=== PATIENT | male | born 1975 | race Asian ===

== ENCOUNTER 2017-01-28 05:31 | Inpatient (IN) | payer OTHER ==
[2017-01-28] VITALS (21 sets, daily range): BP systolic 110–138; BP diastolic 41–93
[~2017-01-28] VITALS: Ht 188 cm; Wt 94.3 kg
[~2017-01-28 05:31] MED LIST: IBUPROFEN600 MG ORAL; MULTIVITAMINS1 EAC2 ORAL; NORCO 5-325 TA1 EAC1 ORAL
[2017-01-28] MEDS ORDERED: Vancomycin 1gm inj IVPB ONE (05:53)
[2017-01-28] MEDS ORDERED: Bupivacaine w/Epi 0.5% 30ml Vial INJ ONE (05:53)
[2017-01-28] MEDS ORDERED: Thrombin 5000 units TOPIC ONE (05:53)
[2017-01-28] MEDS ORDERED: Bacitracin 50000 Units Vial ONE (05:54)
[2017-01-28] MEDS ORDERED: Thrombin 5000 units spray kit TOPIC ONE (05:54)
[2017-01-28] MEDS ORDERED: Gelfoam Absorbable 1gm powder pkt TOPIC ONE (05:54)
--- NOTE | 2017-01-28 06:59 | Pre-Procedure Note/Attestation ---
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 I attest that, if there was a reasonable possibility of needing a blood transfusion, the patient (or the patient's legal compliance representative dealer) was given the [facility] standardized written summary, pursuant to the Jas Nilesh Blood Safety Act ([place] Health and Safety Code # 1645, as amended). I attest that I re-evaluated the patient just prior to the surgery and that there has been no change in the patient's H&P, except as documented below: SHERLY SIN Jan 28, 2017 06:59
[2017-01-28] MEDS ORDERED: Heparin 5000 units/ml inj ONE (07:00)
[2017-01-28] MEDS ORDERED: LR 1000ml 1,000 ML IVLG SCH (07:37)
--- NOTE | 2017-01-28 07:37 | Anethesia Preoperative Eval ---
Anesthesia Pre-op PMH/ROS General Date of Evaluation: Jan 28, 2017 Anesthesiologist: Cesar ASA Score: ASA 1 Mallampati Score Class I : Soft palate, uvula, fauces, pillars visible Class II: Soft palate, uvula, fauces visible Class III: Soft palate, base of uvula visible Class IV: Only hard plate visible Mallampati Classification: Class II Surgeon: Ayo Diagnosis: L4-5 Nucleus pulposus Surgical Procedure: L4-5 total total disc arthroplasty Anesthesia History: none Social History: current smoker - 1/2 pack per day X 10+ years Family History: no anesthesia problems Allergies: Coded Allergies: No Known Allergies (Unverified , 01/24/17) Medications: see eMAR - Past Medical History Cardiovascular: Denies: CAD, HTN, [place], arrhythmia, other, valve dz Pulmonary: Denies: COPD, KRISTEN, asthma, other Gastrointestinal/Genitourinary: Denies: CRI, ESRD, GERD, other Neurologic/Psychiatric: Denies: CVA, TIA, dementia, depression/anxiety, other Endocrine: Denies: DM, hypothyroidism, other, steroids HEENT: Denies: [place] (L), [place] (R), cataract (L), cataract (R), glaucoma, other Hematology/Immune: Denies: DVT, anemia, bleeding disorder, other Musculoskeletal/Integumentary: Denies: DDD, DJD, OA, RA, edema, other PSxH Narrative: lap appy Anesthesia Pre-op Phys. Exam Physician Exam Last Vital Signs Date Time Temp Pulse Resp B/P Pulse Ox O2 Delivery O2 Flow Rate FiO2 01/28/17 06:14 97.2 78 18 138/93 97 Room Air Constitutional: NAD Cardiovascular: RRR Respiratory: CTA Airway Exam Mallampati Score: Class II MO: full ROM: full Teeth: missing, intact Anesthesia Pre-op A/P Labs see chart Studies Pre-op Studies: EKG - sr Risk Assessment & Plan Assessment: ASA I Plan: GA Status Change Before Surgery: No Pre-Antibiotics Drug: Ancef 2g Given Within 1 Hr of Incision: Yes JAMES BADILLO M.D. Jan 28, 2017 07:37
[2017-01-28] MEDS ORDERED: Labetalol 5mg/ml 20ml vial IV PRN (07:45)
[2017-01-28] MEDS ORDERED: Metoclopramide 10mg/2ml Inj IVP PRN (07:45)
[2017-01-28] MEDS ORDERED: DiphenhydrAMINE 50mg/ml Inj IVP PRN ×2 (07:45→13:00)
[2017-01-28] MEDS ORDERED: fentaNYL 100 mcg/2 mL IV PRN (07:45)
[2017-01-28] MEDS ORDERED: Zemuron 50mg/5ml Inj IV ONE (08:00)
[2017-01-28] MEDS ORDERED: LR 1000ml ONE (08:00)
[2017-01-28] MEDS ORDERED: Sterile Water Irrig 1000ml IRRIG ONE (08:00)
[2017-01-28] MEDS ORDERED: Midazolam 2mg/2ml Inj ONE (08:00)
[2017-01-28] MEDS ORDERED: Dexamethasone 4mg/ml vial ONE (08:00)
[2017-01-28] MEDS ORDERED: Metoclopramide 10mg/2ml Inj ONE (08:00)
[2017-01-28] MEDS ORDERED: fentaNYL 250mcg/5ml ONE (08:00)
[2017-01-28] MEDS ORDERED: Propofol 10mg/ml 100ml btl IV ONE (08:00)
[2017-01-28] MEDS ORDERED: NS Irrig 1000ml ONE (08:00)
--- NOTE | 2017-01-28 09:05 | Immediate Post-Op Evaluation ---
Immediate Post-Op Evalulation Immediate Post-Op Evalulation Procedure: Total disc arthroplasty L4-5 Date of Evaluation: Jan 28, 2017 Time of Evaluation: 11:01 IV Fluids: 1.2L Blood Products: 0 Estimated Blood Loss: 100 Urinary Output: 450 Blood Pressure Systolic: 110 Blood Pressure Diastolic: 42 Pulse Rate: 90 Respiratory Rate: 16 O2 Sat by Pulse Oximetry: 100 Temperature (Fahrenheit): 97.8 Pain Score (1-10): 0 Nausea: No Vomiting: No Complications 0 Patient Status: awake, reacts, patent, none Hydration Status: adequate Drug: Ancef 2g Given Within 1 Hr of Incision: Yes Time Given: 08:35 JAMES BADILLO M.D. Jan 28, 2017 09:05
--- NOTE | 2017-01-28 11:26 | Operative Note - PDOC ---
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
[2017-01-28] MEDS: Hydromorphone 0.5mg/0.5ml inj IVP PRN ×3 (11:43→12:28)
--- NOTE | 2017-01-28 11:47 | Diagnostic Imaging Report ---
Indication: PAIN Technique: Digital intraoperative images Comparison: None Findings: Intraoperative images demonstrate surgical tool anterior to the L4-5 disc. Subsequent images document placement of a disc prosthesis at L4-5 Impression: Intraoperative imaging, as described
[2017-01-28] MEDS: PCA HYDROmorphone 1mg/ml 30 ML IV PRN (12:54)
[2017-01-28] MEDS ORDERED: LORazepam 1mg tab ORAL PRN (13:00)
[2017-01-28] MEDS ORDERED: Rate Change PCA 1 Each MISC PRN (13:00)
[2017-01-28] MEDS ORDERED: Naloxone 0.4mg/ml Inj IVP PRN (13:00)
[2017-01-28] MEDS: PCA shift volume MISC SCH ×2 (15:27→23:29)
[2017-01-28] MEDS: D5 1/2NS w/KCl 20mEq 1,000 ML IV SCH (16:35)
[2017-01-28] MEDS: ceFAZolin sod 1 GM in D5W 55 ML IV SCH (16:38)
[2017-01-28] MEDS ORDERED: Influenza Virus Vaccine 0.5ml IM ONE (18:00)
--- NOTE | 2017-01-28 22:58 | Operative Note - Dictated ---
DATE OF OPERATION: 01/28/2017 FACILITY: [facility]. SURGEON: Laz Rollins M.D. with co-surgeon, Dr. Alfredito Napier, for vascular approach. TAX ACCOUNTING MANAGER: Lina Rivera ANESTHESIA: General endotracheal with arterial blood pressure monitoring, Dr. Guerrero. PREOPERATIVE DIAGNOSES: Disk herniation, segmental instability, collapse and degeneration at the L4-L5 level. POSTOPERATIVE DIAGNOSES: Disk herniation, segmental instability, collapse and degeneration at the L4-L5 level. OPERATIVE PROCEDURE: Left pararectus retroperitoneal approach for vessel mobilization and retraction by Dr. Napier with anterior diskectomy with an anterior annulotomy, nuclear diskectomy, bilateral neural foraminotomy and microneurolysis, placement of a total disk arthroplasty implant at the 4-5 level using a large 10 x 6 construct with use of image intensification for help in placement and pulse oximetry. The patient was prepped and draped in usual manner supine on the operating table. A left pararectus retroperitoneal approach was accomplished by Dr. Napier. Vessels were mobilized and retracted using a table fixed frame with reverse tip blades. Center of the disk at 4-5 was marked and the disk was checked AP and lateral with image. Anterior annulotomy was done. The nuclear disk and cartilaginous endplate was then sequentially removed from front to back using [place] tree detachable distractors beginning at 8 and going up to 12 millimeters. The PLL posterior disk annulus was released down the herniation on the left side and to the foramen was also removed. The lateral soft tissues and the lateral disk annulus was left in place. The level was templated with a large 10 x 6 TDA. The template was placed within a couple millimeters of the posterior edge of the vertebral bodies. It was centered between the pedicles and directly on the spinous process and AP. There was good tension with good pull out friction. The mily were then cut in inferior and superior and the disk endplates were tapped into place with the mily attached. They were watched on lateral image until they reached the appropriate depth and were well-aligned with the endplates about 2 to 3 millimeters left of the posterior edge to the posterior margin of the vertebral body. There was good distraction and good overall lordosis. A polyethylene component was then inserted with no step and no gap and the glez was removed. The position of the TDA was then checked, both AP and lateral, there was good fixation, good lordosis and good overall sagittal alignment. There was a well centered prosthesis on AP exactly with distant on the vertebral body with the midline on the spinous process and good centering between the pedicles. Blood loss was not significant. The wound was copiously irrigated and closed in layers including anteroposterior sheath, subcutaneous, and skin. The patient was placed in a compression dressing, returned to recovery room in good condition. Laz Rollins M.D. DR: DARIO JOB#: [id number] CC:
[2017-01-29] VITALS: BP 102/66
[2017-01-29] MEDS: ceFAZolin sod 1 GM in D5W 55 ML IV SCH ×2 (00:01→09:19)
[2017-01-29 04:00] VITALS: BP 110/61
[2017-01-29] MEDS: D5 1/2NS w/KCl 20mEq 1,000 ML IV SCH ×3 (04:12→22:14)
[2017-01-29] MEDS: PCA shift volume MISC SCH ×3 (07:00→23:00)
[2017-01-29 08:00] VITALS: BP 107/68
--- NOTE | 2017-01-29 09:15 | General Surgery Progress Note ---
General Surgery-Progress Note Subjective Procedure Performed Total Disc Arthroplasty L3-5 Symptoms: improved Objective Last 24 Hour Vital Signs Date Time Temp Pulse Resp B/P Pulse Ox O2 Delivery O2 Flow Rate FiO2 01/29/17 04:00 18 01/29/17 04:00 98.1 69 19 110/61 96 Room Air 01/29/17 00:00 98.1 68 18 102/66 97 Room Air 01/28/17 20:40 96.8 82 19 117/69 96 Room Air 01/28/17 20:00 18 01/28/17 16:35 16 01/28/17 16:16 98.4 89 18 115/74 95 Nasal Cannula 2.0 01/28/17 15:59 16 01/28/17 14:55 97.7 86 20 123/81 100 Nasal Cannula 2.0 01/28/17 14:31 18 01/28/17 14:20 98.6 83 20 134/82 99 Nasal Cannula 3.0 01/28/17 14:16 20 01/28/17 14:05 84 20 130/80 100 Nasal Cannula 3.0 01/28/17 14:01 20 01/28/17 13:45 85 16 129/84 99 Nasal Cannula 3.0 01/28/17 13:40 20 01/28/17 13:30 82 13 115/73 99 Nasal Cannula 3.0 01/28/17 13:25 20 01/28/17 13:15 84 14 118/72 99 Nasal Cannula 3.0 01/28/17 13:10 20 01/28/17 13:02 86 20 119/75 100 Nasal Cannula 3.0 01/28/17 12:55 20 01/28/17 12:54 97.8 01/28/17 12:54 97.8 01/28/17 12:54 97.8 01/28/17 12:46 81 18 119/81 99 Nasal Cannula 3.0 01/28/17 12:35 82 20 130/86 100 Nasal Cannula 3.0 01/28/17 12:28 85 20 115/84 100 Nasal Cannula 3.0 01/28/17 12:02 82 20 130/86 100 Nasal Cannula 3.0 01/28/17 11:52 85 22 132/83 99 Nasal Cannula 3.0 01/28/17 11:43 84 22 133/83 99 Nasal Cannula 3.0 01/28/17 11:30 86 20 132/82 98 Nasal Cannula 3.0 01/28/17 11:20 87 20 122/48 100 Simple Mask 10.0 01/28/17 11:05 87 20 110/46 100 Simple Mask 10.0 01/28/17 11:01 90 16 100 01/28/17 11:00 86 20 112/41 100 Simple Mask 10.0 01/28/17 10:56 97.0 89 20 110/42 100 Simple Mask 10.0 I&O Intake and Output 01/28/17 01/29/17 19:00 07:00 Intake Total 2355 ml 400 ml Output Total 1500 ml 2250 ml Balance 855 ml -1850 ml Intake IV Total 2355 ml 400 ml Output Urine Total 1400 ml 2250 ml Estimated Blood Loss 100 ml Dressing: dry Wound: clean Drains: none Abdomen: absent bowel sounds Additional Comments First post op day, No lower GI activity yet >> NPO D/C hernandez today. Begin PT / OT oob with brace. Dr. Tariq following SHERLY SIN Jan 29, 2017 09:15
--- NOTE | 2017-01-29 11:45 | 48 Hour Post Anesthesia Eval ---
Post Anesthesia Evaluation Procedure: Total disc arthroplasty L4-5 Date of Evaluation: Jan 29, 2017 Time of Evaluation: 09:20 Blood Pressure Systolic: 107 0: 68 Pulse Rate: 76 Respiratory Rate: 18 Temperature (Fahrenheit): 97.0 O2 Sat by Pulse Oximetry: 100 Airway: patent Nausea: No Vomiting: No Pain Intensity: 3 Hydration Status: adequate Cardiopulmonary Status: Stable Mental Status/LOC: patient returned to baseline Follow-up Care/Observations: As per surgery Post-Anesthesia Complications: No anesthetic complication Follow-up care needed: N/A ANALIA BALDERRAMA M.D. Jan 29, 2017 11:45
[2017-01-29] MEDS: PCA HYDROmorphone 1mg/ml 30 ML IV PRN (11:59)
[2017-01-29 12:00] VITALS: BP 119/64
[2017-01-29 16:29] VITALS: BP 123/82
[2017-01-29 20:27] VITALS: BP 136/85
--- NOTE | 2017-01-29 23:48 | Operative Note - Dictated ---
DATE OF OPERATION: 01/28/2017 VASCULAR SURGEON: Junior Napier M.D. SPINE SURGEON: Laz Rollins M.D. PREOPERATIVE DIAGNOSIS: Degenerative disc disease. POSTOPERATIVE DIAGNOSIS: Degenerative disc disease. PROCEDURE PERFORMED: Anterior retroperitoneal exposure of L4-L5 vertebral interspace. INDICATIONS: The patient is a very pleasant gentleman, who is seen prior to surgery. He has a history of prior appendectomy. No history of deep vein thrombosis or bleeding complications was described. The patient was made aware the need for lower abdominal incision for exposure of L4-L5, possibly vascular injury, possible need for blood transfusion, deep venous thrombosis were explicitly discussed with him prior to surgery. DESCRIPTION OF FINDINGS: A vertical midline incision was used. A left retroperitoneal approach was used. There was no peritoneal or ureteral violation. There was no vascular injury. Exposure of L4-L5 was obtained by retraction of the left iliac vessels towards the patient's right above the iliac bifurcation. Fluoroscopy used to confirm the appropriate level. On completion, the patient had palpable femoral pedal pulses. Blood loss less than 50 mL. Pulse oximetry did diminish with retraction of the iliac vessels during the instrumentation, however, returned immediately upon releasing the retraction and the length of this occlusion was less than 25-30 minutes. DESCRIPTION OF PROCEDURE: The patient was taken to the operating room, general anesthesia was used. IV antibiotics were given. Abdomen was prepped and draped. Appropriate timeout procedures were taken. A lower vertical midline incision was used. Anterior fascia was incised longitudinally in the midline. A plane was identified posterior to the left rectus abdominis and developed posterolaterally towards the patient's left. The retroperitoneal space entered below the arcuate line. The peritoneum and ureter mobilized towards the patient's right exposing the left common iliac vessels. Dissection was carried on the left side of the left common iliac artery and vein. Overlying lymphatics were ligated with vascular clips. The iliolumbar vein was identified. It was circled using a 2-0 silk tie. It was triply ligated proximally and distally with vascular clips and divided. The L4 segmental artery and vein were also identified superior to the L4-L5 vertebral interspace. These were ligated with vascular clips and divided and this allowed us to retract the left iliac vessels towards the patient's right exposing the anterior surface of L4-L5. The Omni retractor was set in place. Fluoroscopy was then used to confirm the appropriate level. Instrumentation was performed at L4-L5 and dictated separately. On completion, retractor gently removed. The peritoneum and ureter intact. Iliac vessels are intact. Anterior fascia closed using #1 PDS in running fashion. Skin and subcutaneous tissue were closed with 3-0 Vicryl and 4-0 Monocryl in running subcuticular closure technique. ESTIMATED BLOOD LOSS: Less than 100 mL. COMPLICATIONS: None. Junior Napier M.D. DR: MAYNOR JOB#: [id number] CC:
[2017-01-30] VITALS: BP 128/81
[2017-01-30 04:00] VITALS: BP 126/74
[2017-01-30] MEDS: PCA shift volume MISC SCH (07:11)
[2017-01-30 08:00] VITALS: BP 119/77
[2017-01-30] MEDS: D5 1/2NS w/KCl 20mEq 1,000 ML IV SCH ×2 (09:26→16:54)
--- NOTE | 2017-01-30 10:29 | History & Physical ---
History and Physical History & Physicial 3-14 HP reviewed care noted d/w RN will follow up post op MARIA ELENA JUÁREZ Jan 30, 2017 10:29
--- NOTE | 2017-01-30 10:31 | General Progress Note ---
Assessment/Plan Assessment/Plan Total Disc Arthroplasty L3-5 Lumbar disc disease post operative fevers PLAN 1. incentive spirometry 2. SCDs 3. PT evaluation and therapy 4. Hydration 5. Pain management 6. discharge once stable with outpatient follow up 7. tylenol for fevers Subjective Allergies: Coded Allergies: No Known Allergies (Unverified , 01/24/17) Subjective had fevers last night Objective Last 24 Hour Vital Signs Date Time Temp Pulse Resp B/P Pulse Ox O2 Delivery O2 Flow Rate FiO2 01/30/17 08:00 16 01/30/17 08:00 98.2 87 18 119/77 99 Room Air 01/30/17 04:00 18 01/30/17 04:00 100.0 94 18 126/74 95 Room Air 01/30/17 00:00 99.0 83 18 128/81 97 Room Air 01/30/17 00:00 18 01/29/17 22:00 18 01/29/17 20:27 99.7 90 19 136/85 96 Room Air 01/29/17 20:00 18 01/29/17 16:29 97.7 91 19 123/82 93 Room Air 01/29/17 16:00 18 01/29/17 13:00 97.0 01/29/17 12:00 97.7 86 18 119/64 98 Room Air 01/29/17 12:00 19 01/29/17 11:45 76 18 100 Intake and Output 01/29/17 01/30/17 18:59 06:59 Intake Total 600 ml Output Total 250 ml Balance -250 ml 600 ml Intake IV Total 600 ml Output Urine Total 250 ml # Voids 1 2 Height (Feet): 6 Height (Inches): 2.00 Weight (Pounds): 208 Objective WDWN NAD clear breath sounds bilaterally without rhonchi or wheeze [id number] without MRG some tenderness no HSM no CCE nonfocal MARIA ELENA JUÁREZ Jan 30, 2017 10:31
[2017-01-30] MEDS ORDERED: Naloxone 0.4mg/ml Inj IVP PRN (12:00)
[2017-01-30] MEDS ORDERED: Norco 7.5mg/325mg tab ORAL PRN ×2 (13:00)
[2017-01-30] MEDS ORDERED: HYDROmorphone 1mg/ml Carpuject IVP PRN (13:00)
[2017-01-30] MEDS ORDERED: HYDROmorphone 1mg/ml Carpuject SUBQ PRN (13:00)
[2017-01-30] MEDS ORDERED: Norco 5mg/325mg tab ORAL PRN (13:00)
--- NOTE | 2017-01-30 13:14 | General Surgery Progress Note ---
General Surgery-Progress Note Subjective Procedure Performed Total Disc Arthroplasty L3-5 Symptoms: improved, not tolerating diet Objective Last 24 Hour Vital Signs Date Time Temp Pulse Resp B/P Pulse Ox O2 Delivery O2 Flow Rate FiO2 01/30/17 12:00 18 01/30/17 08:00 16 01/30/17 08:00 98.2 87 18 119/77 99 Room Air 01/30/17 04:00 18 01/30/17 04:00 100.0 94 18 126/74 95 Room Air 01/30/17 00:00 99.0 83 18 128/81 97 Room Air 01/30/17 00:00 18 01/29/17 22:00 18 01/29/17 20:27 99.7 90 19 136/85 96 Room Air 01/29/17 20:00 18 01/29/17 16:29 97.7 91 19 123/82 93 Room Air 01/29/17 16:00 18 I&O Intake and Output 01/29/17 01/30/17 19:00 07:00 Intake Total 700 ml Output Total 250 ml Balance -250 ml 700 ml Intake IV Total 700 ml Output Urine Total 250 ml # Voids 1 2 Dressing: dry Wound: clean Drains: none Abdomen: soft, flat, absent bowel sounds Additional Comments Pt not yet passing gas >>NPO Will D/C [employer]. Dr. Tariq following. SHERLY SIN Jan 30, 2017 13:14
[2017-01-30 13:54] VITALS: BP 127/91
[2017-01-30 16:00] VITALS: BP 135/79
[2017-01-30 19:30] VITALS: BP 137/87
[2017-01-31] VITALS: BP 121/77
[2017-01-31] MEDS: D5 1/2NS w/KCl 20mEq 1,000 ML IV SCH (03:03)
[2017-01-31 04:00] VITALS: BP_SYST 122; BP_SYST 143; BP_DIAS 77; BP_DIAS 89
[2017-01-31 08:18] VITALS: BP 119/80
--- NOTE | 2017-01-31 09:11 | General Surgery Progress Note ---
General Surgery-Progress Note Subjective Procedure Performed Total Disc Arthroplasty L3-5 Symptoms: improved, passing flatus Objective Last 24 Hour Vital Signs Date Time Temp Pulse Resp B/P Pulse Ox O2 Delivery O2 Flow Rate FiO2 01/31/17 08:18 98.1 82 20 119/80 96 Room Air 01/31/17 04:00 98.2 79 18 122/77 98 Room Air 01/31/17 00:00 97.9 78 18 121/77 98 Room Air 01/30/17 20:37 98.4 01/30/17 19:30 99.3 92 16 137/87 96 Room Air 01/30/17 16:00 98.1 99 16 135/79 96 Room Air 01/30/17 13:54 98.8 91 18 127/91 99 Room Air 01/30/17 12:00 18 I&O Intake and Output 01/30/17 01/31/17 19:00 07:00 Intake Total 850 ml 900 ml Output Total 400 ml Balance 450 ml 900 ml Intake IV Total 850 ml 900 ml Output Urine Total 400 ml # Voids 1 Dressing: dry Wound: clean Drains: none Additional Comments Patient began lower GI track activity last PM. Will advance diet.If tolerates, home later today. Dr. Chandni barnett. Will need 3-in-1 commode for home. SHERLY SIN Jan 31, 2017 09:11
--- NOTE | 2017-01-31 09:15 | General Progress Note ---
Assessment/Plan Assessment/Plan Total Disc Arthroplasty L3-5 Lumbar disc disease post operative fevers PLAN 1. incentive spirometry 2. SCDs 3. PT evaluation and therapy 4. advance diet and dc today if stable 5. Pain management 6. discharge once stable with outpatient follow up 7. tylenol for fevers Subjective Allergies: Coded Allergies: No Known Allergies (Unverified , 01/24/17) Subjective tolerating po Objective Last 24 Hour Vital Signs Date Time Temp Pulse Resp B/P Pulse Ox O2 Delivery O2 Flow Rate FiO2 01/31/17 08:18 98.1 82 20 119/80 96 Room Air 01/31/17 04:00 98.2 79 18 122/77 98 Room Air 01/31/17 00:00 97.9 78 18 121/77 98 Room Air 01/30/17 20:37 98.4 01/30/17 19:30 99.3 92 16 137/87 96 Room Air 01/30/17 16:00 98.1 99 16 135/79 96 Room Air 01/30/17 13:54 98.8 91 18 127/91 99 Room Air 01/30/17 12:00 18 Intake and Output 01/30/17 01/31/17 19:00 07:00 Intake Total 850 ml 900 ml Output Total 400 ml Balance 450 ml 900 ml Intake IV Total 850 ml 900 ml Output Urine Total 400 ml # Voids 1 Height (Feet): 6 Height (Inches): 2.00 Weight (Pounds): 208 Objective WDWN NAD clear breath sounds bilaterally without rhonchi or wheeze [id number] without MRG some tenderness no HSM no CCE nonfocal MARIA ELENA JUÁREZ Jan 31, 2017 09:15
[2017-01-31 12:50] VITALS: BP 121/76
[2017-01-31] MEDS ORDERED: NORCO 10-325 T1 EACH ORAL ×4 (13:31→13:33)
[2017-01-31] MEDS ORDERED: Tubing IV Secondary IV ONE (15:10)
--- NOTE | 2017-02-01 13:43 | Discharge Summary ---
Discharge Summary Hospital Course Date of Admission Jan 28, 2017 at 05:31 Date of Discharge Jan 31, 2017 at 14:30 Admitting Diagnosis HPI Sascha Higgins is a 41 year old male who was admitted on Jan 28, 2017 at 05: 31 for L4-5 Nucleus Pulposus Hospital Course [id number] Discharge Discharge Disposition Patient was discharged to Home (01) Discharge Diagnoses: Moira Geiger NP Feb 01, 2017 13:43
--- NOTE | 2017-02-02 01:48 | Discharge Summary 2 SIG ---
DATE OF ADMISSION: 01/28/2017 DATE OF DISCHARGE: 01/31/2017 SURGEON: Laz Rollins M.D. BRIEF HOSPITAL COURSE: The patient is a 41-year-old male. The patient was injured when he fell off a bench. Date of injury was 04/23/2016. As a result, he injured his back and notes radiation of pain down the legs. He also has numbness on the thigh and buttocks. The patient underwent physical therapy and pain management, however, still reports pain with prolonged standing, walking, and sitting and is unable to sleep through the night due to pain and discomfort. On 01/28/2017, the patient underwent total disk arthroplasty on L3-L5 by Dr. Rollins, assisted by a vascular doctor, Dr. Napier. Postoperatively, he was given incentive spirometry and SCDs for DVT prophylaxis. He underwent physical therapy evaluation and therapy and was given pain management and hydration. He had slight fever, which resolved. He was kept on NPO until he was able to pass gas. Diet was eventually advanced. The patient was eventually discharged home. Advised to follow up as outpatient. FINAL DIAGNOSES: 1. Total disk arthroplasty on L3-L5. 2. Lumbar disc disease. 3. Postop fever. Kiet Tariq M.D. I have been assigned to dictate discharge summary on this account and I was not involved in the patient's management. Moira Geiger N.P. DR: NATASHA JOB#: [id number] CC:
== END 2017-01-31 14:30 | disposition home or self-care (01) | DRG 518 ==
LOC: SDSOVERFLO 05:31 → 3E 14:42
PROC: 0ST20ZZ Resection of Lumbar Vertebral Disc, Open Approach (ICD-10-PCS; principal; 2017-01-28 07:30)
PROC: 0SR20JZ Replacement of Lumbar Vertebral Disc with Synthetic Substitute, Open Approach (ICD-10-PCS; principal; 2017-01-28 07:30)
DX: M51.36 Other intervertebral disc degeneration, lumbar region (principal); M51.26 Other intervertebral disc displacement, lumbar region; R50.82 Postprocedural fever
CPT/HCPCS: 36415; 72020; 76001; 86850; 86900; 86901; 87081; 94003; 94150; J2250; J2405; J2765; Q2036